=== PATIENT | male | born 1955 | race Caucasian/White ===

== ENCOUNTER → 2022-07-18 12:08 | Outpatient (CLI) | payer MEDICARE, OTHER, SELFPAY ==
--- NOTE | 2022-07-18 12:19 | XR_ITS ---
FINAL REPORT CLINICAL HISTORY: shoulder pain FINDINGS: Right shoulder Three views were obtained. There is no acute fracture or dislocation. There is mild AC joint degenerative change. There is a 6 mm loose body superior to the acromioclavicular joint. IMPRESSION: Loose body superior to the acromioclavicular joint. Reviewed, Interpreted and Dictated by Srinath Sosa III, MD Transcribed by Zita Douglas Authenticated and [facility]
--- NOTE | 2022-07-18 12:19 | XR_ITS ---
FINAL REPORT CLINICAL HISTORY: shoulder pain FINDINGS: Left shoulder Three views were obtained. There is no acute fracture or dislocation. There is mild AC joint degenerative change. There is a 3 mm loose body superior to the acromioclavicular joint. IMPRESSION: Loose body superior to the acromioclavicular joint. Reviewed, Interpreted and Dictated by Srinath Sosa III, MD Transcribed by Zita Douglas Authenticated and [facility]
== END ==
PROVIDERS: PCP Hospitalist; Visit Provider Orthopaedic Surgery
DX: M25.511 Pain in right shoulder (principal); M25.512 Pain in left shoulder
CPT/HCPCS: 73030

== ENCOUNTER → 2022-07-24 15:05 | Outpatient (CLI) | payer MEDICARE, OTHER, SELFPAY ==
--- NOTE | 2022-07-24 15:06 | MR_ITS ---
FINAL REPORT CLINICAL HISTORY: neck pain RIGHT SIDED ARM PAIN AND NUMBNESS X 1 MONTH FINDINGS: Multiplanar MR imaging of the cervical spine was performed without contrast. There appears to be partial fusion of C5 and C6. On the sagittal T2-weighted images, disc degeneration is seen at multiple levels. There is no evidence of fracture. There is mild kyphosis centered at C4. A hemangioma in C7 is noted. The cervical spinal cord has an unremarkable appearance without evidence of mass, edema or syrinx. The cervicomedullary junction is normal. C2-3: There is no significant canal stenosis or neural foraminal narrowing. C3-4: An annular bulge is present. There are uncovertebral osteophytes. There is severe bilateral neural foraminal narrowing. There is mild central canal stenosis with an AP diameter of the thecal sac of 9 mm. C4-5: There is a disc osteophyte complex. There is a central disc protrusion which causes cord contouring. There is severe bilateral neural foraminal narrowing. There is moderate central canal stenosis with an AP diameter of the thecal sac of 6 mm. C5-6: There is a disc osteophyte complex. There is severe bilateral neural foraminal narrowing. There is no significant canal stenosis. C6-7: . There is a right foraminal extruded disc causing right C7 nerve root impingement. C7-T1: An annular bulge is present. There is no significant canal stenosis or neural foraminal narrowing. IMPRESSION: Multilevel degenerative disc disease with areas of neural foraminal narrowing and central canal stenosis. Right foraminal extruded disc at C6-7 causes right C7 nerve root impingement. Central disc protrusion at C4-5 causes cord contouring. Reviewed, Interpreted and Dictated by Srinath Sosa III, MD Transcribed by Helene Bass Authenticated and . [facility]
== END ==
PROVIDERS: PCP Hospitalist; Visit Provider Orthopaedic Surgery
DX: M54.12 Radiculopathy, cervical region (principal)
CPT/HCPCS: 72141; 76376

== ENCOUNTER 2024-08-03 12:32 | Outpatient (CLI) | payer MEDICARE, OTHER, SELFPAY ==
--- NOTE | 2024-08-03 12:43 | XR_ITS ---
PROCEDURE INFORMATION: Exam: XR Right Hand Exam date and time: 08/03/2024 1:16 PM Age: 68 years old Clinical indication: Pain; Hand; Right; Additional info: Right hand pain TECHNIQUE: Imaging protocol: Radiologic exam of the right hand. Views: 3 or more views. COMPARISON: No relevant prior studies available. FINDINGS: Bones/joints: Joint space narrowing in the DIP joints and PIP joints of the fingers and IP joint of the thumb. Soft tissues: Possible avulsion fracture off the dorsal lip of the long finger within the distal phalanx. It involves the D IP joint. Recommend dedicated images of the isolated middle finger for further evaluation. IMPRESSION: 1. Joint space narrowing in the DIP joints and PIP joints of the fingers and IP joint of the thumb. 2. Possible avulsion fracture off the dorsal lip of the long finger within the distal phalanx. It involves the D IP joint. Recommend dedicated images of the isolated middle finger for further evaluation.
== END 2024-08-03 23:59 | disposition home or self-care (01) ==
LOC: RAD 12:35
PROVIDERS: PCP Hospitalist; Visit Provider Orthopaedic Surgery
DX: M79.641 Pain in right hand (principal)
CPT/HCPCS: 73130

== ENCOUNTER 2024-08-18 15:31 | Outpatient (CLI) | payer MEDICARE, OTHER, SELFPAY ==
--- NOTE | 2024-08-18 15:32 | MR_ITS ---
PROCEDURE INFORMATION: Exam: MR Right Upper Extremity Other Than Joint Without Contrast; Hand Exam date and time: 08/18/2024 4:19 PM Age: 69 years old Clinical indication: Pain; Additional info: Right hand pain TECHNIQUE: Imaging protocol: MR of the right upper extremity without contrast. Exam focused on the hand. COMPARISON: CR XR HAND RT MIN 3V 08/03/2024 1:16 PM FINDINGS: Bones/joints: A small 1st and 5th MCP joint effusions are visualized, with a minimal effusion at the 1st CMC joint. There is narrowing of interphalangeal joint spaces diffusely, as well as the radiocarpal joint, consistent with arthropathy. Degenerative spurring is identified at the 1st MCP, 1st IP, and 1st CMC joints. Mild marrow edema is identified within the lateral aspect of the 3rd proximal phalanx, likely secondary to arthropathy or trauma. A small osseous cyst is seen within the 4th metacarpal head, with a tiny osseous cyst within the 3rd metacarpal head. No visualized acute marrow edema is identified of the remaining hand. A small effusion is seen at the 3rd MCP joint. Minimal fluid is identified adjacent to the 2nd and 4th MTP joints. There is a small cystic collection of fluid dorsal to the 5th metatarsal head. Collateral ligaments of digits: No evidence of tear. Flexor compartment tendons: A small amount of fluid is seen adjacent to the flexor pollicis longus tendon, consistent with mild tenosynovitis. There is minimal tenosynovitis of the flexor digitorum tendons to the 4th digit. Extensor compartment tendons: No evidence of tear. Soft tissues: Mild soft tissue edema is visualized of the dorsal hand, dorsal to the 2nd through 4th MCP joints. IMPRESSION: 1. There is narrowing of interphalangeal joint spaces diffusely, as well as the radiocarpal joint, consistent with arthropathy. Degenerative spurring is identified at the 1st MCP, 1st IP, and 1st CMC joints. 2. Mild marrow edema is identified within the lateral aspect of the 3rd proximal phalanx, likely secondary to arthropathy or trauma. 3. Mild tenosynovitis is visualized of the flexor pollicis longus tendon. There is minimal tenosynovitis of the flexor digitorum tendons to the 4th digit. 4. Small effusions. 5. Mild soft tissue edema is visualized of the dorsal hand, dorsal to the 2nd through 4th MCP joints. 6. Additional findings described above.
== END 2024-08-18 23:59 | disposition home or self-care (01) ==
LOC: RAD 15:32
PROVIDERS: PCP Hospitalist; Visit Provider Physician Assistant
DX: M79.641 Pain in right hand (principal)
CPT/HCPCS: 73218